=== PATIENT | female | born 1985 | race Caucasian/White ===

== ENCOUNTER 2019-01-09 20:55 | Emergency (ER) | payer SELFPAY ==
[~2019-01-09] VITALS: Ht 157 cm; Wt 61.3 kg
[2019-01-09] MEDS ORDERED: PROMETHAZINE/ CODEINE SYRUP 5 ML UDC PO ONE (21:15)
[2019-01-09] MEDS ORDERED: predniSONE 20 MG TAB PO ONE (21:15)
[2019-01-09] MEDS ORDERED: CEPHALEXIN 250 MG (KEFLEX) CAP PO ONE (21:15)
--- NOTE | 2019-01-09 21:17 | ED Cough/URI ---
General Chief Complaint: Cough/Cold/Flu Symptoms Stated Complaint: COUGH / FEVER Nursing Triage Note: Patient ambulatory to ER FT1 with family member with complaint of cough x 1 month. Patient also complains of intermittent fever x 1 month and vomiting last night. She also complains of a headache. Sepsis Screen: No Definite Risk Source: patient Exam Limitations: no limitations History of Present Illness Date Seen by Provider: Jan 09, 2019 Time Seen by Provider: 21:16 Initial Comments ER with reports of a cough productive in nature for 1 month intermittent fevers for 1 month as well. She has not yet been on any medication for this Timing/Duration: just prior to arrival Severity/Quality: productive cough Associated Symptoms: cough, fever/chills Allergies and Home Medications Allergies Coded Allergies: tamsulosin (Verified Allergy, Mild, 01/09/19) Patient Home Medication List Home Medication List Reviewed: Yes Review of Systems Review of Systems Constitutional: see HPI, fever EENTM: see HPI Respiratory: see HPI, cough Cardiovascular: no symptoms reported Genitourinary: see HPI Musculoskeletal: no symptoms reported Skin: no symptoms reported Psychiatric/Neurological: No Symptoms Reported Hematologic/Lymphatic: No Symptoms Reported Past Dmybefl-Bdyqmb-Hammkk Hx Patient Social History Alcohol Use: Past History Recreational Drug Use: No Smoking Status: Current Everyday Smoker Type Used: Cigarettes 2nd Hand Smoke Exposure: Yes Recent Foreign Travel: No Contact w/Someone Who Travel: No Recent Infectious Disease Expo: No Recent Hopitalizations: No Physical Abuse: No Sexual Abuse: No Mistreated: No Fear: No Immunizations Up To Date PED Vaccines UTD: Yes Date of Influenza Vaccine: Jan 14, 2018 Seasonal Allergies Seasonal Allergies: No Past Medical History Surgeries: Yes (lithotripsy, back surgery) Respiratory: No Cardiac: No Neurological: No Genitourinary: Yes Kidney Stones Gastrointestinal: No Musculoskeletal: Yes Chronic Back Pain Endocrine: No HEENT: No Cancer: No Psychosocial: No Integumentary: No Physical Exam Vital Signs - First Documented 01/09/19 21:00 Temp 36.3 Pulse 109 Resp 14 B/P (MAP) 116/80 (92) Pulse Ox 96 O2 Delivery Room Air Capillary Refill : Less Than 3 Seconds Height: '" Weight: lbs. oz. kg; 24.00 BMI Method: General Appearance: WD/WN, no apparent distress Eyes: Bilateral Eye Normal Inspection, Bilateral Eye PERRL, Bilateral Eye EOMI HEENT: PERRL/EOMI, normal ENT inspection Neck: non-tender, full range of motion Respiratory: no respiratory distress, no accessory muscle use Cardiovascular: regular rate, rhythm, no murmur Gastrointestinal: non tender, soft Neurologic/Psychiatric: alert, normal mood/affect, oriented x 3 Skin: normal color Progress/Results/Core Measures Suspected Sepsis Recent Fever Within 48 Hours: No Infection Criteria Present: None New/Unexplained Altered Menta: No Sepsis Screen: No Definite Risk SIRS Temperature: Pulse: 109 Respiratory Rate: 14 Blood Pressure 116 /80 Mean: 92 Results/Orders My Orders Orders - MIRANDA MCKOY APRN Chest Pa/Lat (2 View) (01/09/19 21:11) Promethazine/ Codeine Syrup (Phenergan W (01/09/19 21:15) Prednisone Tablet (Deltasone Tablet) (01/09/19 21:15) Cephalexin Capsule (Keflex Capsule) (01/09/19 21:15) Medications Given in ED Current Medications Medications Dose Ordered Sig/Rowdy Route Start Time Stop Time Status Last Admin Dose Admin Cephalexin HCl 500 mg ONCE ONCE PO 01/09/19 21:15 01/09/19 21:16 DC 01/09/19 21:21 500 MG Prednisone 60 mg ONCE ONCE PO 01/09/19 21:15 01/09/19 21:16 DC 01/09/19 21:22 60 MG Promethazine HCl/ Codeine 7.5 ml ONCE ONCE PO 01/09/19 21:15 01/09/19 21:16 DC 01/09/19 21:23 7.5 ML Vital Signs/I&O 01/09/19 21:00 Temp 36.3 Pulse 109 Resp 14 B/P (MAP) 116/80 (92) Pulse Ox 96 O2 Delivery Room Air Capillary Refill : Less Than 3 Seconds Blood Pressure Mean: 92 Departure Impression Primary Impression: Bronchitis Disposition: 01 HOME, SELF-CARE Condition: Stable Departure-Patient Inst. Decision time for Depature: 21:29 Referrals: NO,LOCAL PHYSICIAN (PCP/Family) Primary Care Physician Patient Instructions: Acute Bronchitis Add. Discharge Instructions: 1. REturn to ER for any concerns 2. Follow up with your doctor next week Scripts Prednisone (Prednisone) 20 Mg Tab 40 MG PO DAILY, #6 TAB 0 Refills Prov: MIRANDA MCKOY APRN 01/09/19 Cefuroxime Axetil (Cefuroxime) 500 Mg Tablet 500 MG PO BID, #10 TAB Prov: MIRANDA MCKOY APRN 01/09/19 MIRANDA MCKOY APRN Jan 09, 2019 21:17
--- NOTE | 2019-01-09 21:27 | Diagnostic Imaging Report ---
INDICATION: Cough COMPARISON: None. FINDINGS: Frontal and lateral views the chest demonstrate clear lungs bilaterally. The heart size is normal. There is no pneumothorax. Osseous structures are normal. IMPRESSION: No acute findings. Normal chest. Dictated by: Dictated on workstation # [id number]
[2019-01-09] MEDS ORDERED: CEFU500T63 PO (21:31)
[2019-01-09] MEDS ORDERED: PRD20T PO (21:31)
[2019-01-09 21:46] VITALS: BP 116/80
== END 2019-01-09 21:47 | disposition home or self-care (01) ==
LOC: ER 20:57
DX: J40 Bronchitis, not specified as acute or chronic (principal); F17.210 Nicotine dependence, cigarettes, uncomplicated; Z88.8 Allergy status to other drugs, medicaments and biological substances; Z87.442 Personal history of urinary calculi
CPT/HCPCS: 71046